=== PATIENT | female | born 1965 | race Caucasian/White ===

== ENCOUNTER → 2019-01-12 12:49 | Outpatient (CLI) | payer BC, SELFPAY ==
--- NOTE | 2019-01-12 | DI.US.S_ITS ---
PROCEDURE: US PELVIC COMPLETE INDICATIONS: POSTMENOPAUSAL BLEEDING TECHNIQUE: Real-time scanning was performed of the pelvic organs, with image documentation. Additional endovaginal scanning was necessary due to incomplete visualization of the adnexal and endometrial structures by transabdominal scanning. COMPARISON: None. FINDINGS: Transabdominal scanning: Limited scanning through the kidneys shows no hydronephrosis. No pathologic free abdominal or pelvic fluid. Endovaginal scanning: Uterus: Uterus is normal in size at 7.9 x 4.7 x 6.2 cm. The endometrium measures 8.6 mm in combined thickness. Ovaries: Left are not visualized. Normal right ovary measuring 2.0 x 1.1 x 1.3 cm. IMPRESSION: Thickened endometrial complex and endometrial carcinoma cannot be excluded. Recommend endometrial biopsy. Dictated by: Oz RANKIN Interpreted: Radu Mayfield MD on 01/12/2019 at 15:24 Approved by: Radu Mayfield M.D. on 01/12/2019 at 16:09
== END ==
PROVIDERS: PCP Family Medicine; Visit Provider Family Medicine
DX: N95.0 Postmenopausal bleeding (principal)
CPT/HCPCS: 76830; 76856

== ENCOUNTER 2019-02-12 16:58 | Emergency (ER) | payer BC, SELFPAY ==
[2019-02-12 17:01] VITALS: BP 124/87; PULSE 184; RESP 20; TEMP 35.5; O2SAT 99; BMI 30.1
--- NOTE | 2019-02-12 17:07 | ED.CHESTPAIN ---
HPI - Chest Pain General Chief Complaint: Chest Pain Stated Complaint: thinks she is having heart attack SOB Time Seen by Provider: 02/12/19 17:07 Source: patient and family () Mode of arrival: ambulatory Limitations: no limitations History of Present Illness HPI narrative: 54-year-old female comes to the emergency department with complaint of pain in pressure between her shoulder blades radiating towards the front. Patient states she feels like her heart is going very fast. She states she feels like she is having a panic attack. She is having some shortness of breath. She is not having any nausea or vomiting. No swelling in her lower extremities no other GI symptoms. She states she has not been drinking fluids regularly. She states she has been out he. She does do not tobacco. She does drink alcohol, she states she has been drinking a lot lately and states sometimes 7 or 8 drinks a night. She has been quite stressed lately with some personal family issues. She occasionally uses CBD but no other illicit. Dr. Jiménez is her primary care. Family history mom had a TIA. Patient states no other medical issues. She has had bunion and surgery and . She did recently drive from [place] back to [place] about a week ago. Related Data Home Medications Medication Instructions Recorded Confirmed aripiprazole 5 mg PO DAILY 02/12/19 Previous Rx's Medication Instructions Recorded metoprolol succinate 25 mg PO DAILY #30 each 02/12/19 Allergies Allergy/AdvReac Type Severity Reaction Status Date / Time No Known Drug Allergies Allergy Verified 02/12/19 17:01 Review of Systems Review of Systems ROS Unobtainable: All systems reviewed & are unremarkable except as noted in HPI and below Constitutional Denies chills and Denies fever(s) Cardiovascular Reports chest pain, Denies diaphoresis, Denies syncope, Reports rapid heart rate, Denies edema, Denies leg edema, Denies lightheadedness, Reports palpitations and Reports dyspnea Respiratory Denies change in phlegm color, Denies chest congestion, Denies cough, Denies pain on inspiration, Reports dyspnea and Denies wheezing Gastrointestinal Gastrointestinal: Denies abdominal pain, Denies change in bowel habits, Denies diarrhea, Denies nausea and Denies vomiting Genitourinary Denies hematuria, Denies dysuria, Denies flank pain, Denies urinary incontinence and Denies urinary urgency Musculoskeletal Reports back pain (tight/pain between shoulder blades.) Integumentary/Breasts Denies rash Neurologic Denies syncope Endocrine Reports palpitations Allergic/Immunologic Denies wheezing [facility] Surgical History (Updated 02/12/19 @ 17:23 by Janice Serrato DO) History of (Chronic) S/P bunionectomy (Chronic) Social History (Updated 02/12/19 @ 17:23 by Janice Serrato DO) Smoking Status: Current every day smoker alcohol intake: current substance use type: marijuana Social History (Updated 02/12/19 @ 17:23 by Janice Serrato DO) Smoking Status: Current every day smoker alcohol intake: current substance use type: marijuana Exam Narrative Exam Narrative: GENERAL: Alert and oriented x three, well-nourished, well-appearing female in moderate chest. HEENT: Head normocephalic, atraumatic, EOMI, pupils reactive, face symmetric, moist mucous membranes NECK: Supple, full range of motion CARDIOVASCULAR: Tachycardic for regular rate and rhythm without murmurs, rubs or gallops. No edema. No JVD. RESPIRATORY: Breath sounds equal bilaterally, no wheezes rales or rhonchi. No tachypnea or accessory muscle use. ABDOMEN: Soft, nontender. Normoactive bowel sounds all 4 quadrants. No guarding or rebound, rigidity, no mass : No CVA tenderness EXTREMITIES: Normal range of motion, 2+ pulses bilateral lower extremities. Neurovascularly intact NEUROLOGICAL: Cranial nerves II through XII grossly intact. Moving all extremities SKIN: Warm, dry, no petechiae, no rashes or lesions. Initial Vital Signs Initial Vital Signs: Vital Signs Temperature 95.9 F L 02/12/19 17:01 Pulse Rate 184 H 02/12/19 17:01 Respiratory Rate 20 02/12/19 17:01 Blood Pressure 124/87 02/12/19 17:01 Pulse Oximetry 99 02/12/19 17:01 Course Orders Ordered: ED Orders 02/12/19 17:10 Complete Blood Count AUTO DIFF Stat Comprehensive Metabolic Panel Stat D Dimer Stat Magnesium Stat Partial Thromboplastin Time Stat Prothrombin Time INR Stat Thyroid Stimulating Hormone Stat Troponin & CK Cardiac Panel Stat 02/12/19 17:14 XR chest 1V Stat Discontinued Medications Adenosine (Adenocard) 6 mg IV NOW ONE Stop: 02/12/19 17:15 Last Admin: 02/12/19 17:20 Dose: 6 mg Sodium Chloride (Normal Saline 0.9%) 1,000 mls @ 1,000 mls/hr IV BOLUS ONE Stop: 02/12/19 18:13 Last Infusion: 02/12/19 17:59 Dose: 0 mls/hr Admin: 02/12/19 17:20 Dose: 1,000 mls/hr Metoprolol Succinate (Toprol Xl) 25 mg PO NOW ONE Stop: 02/12/19 18:28 Vital Signs - 8 hr 02/12/19 17:01 Temperature 95.9 F L Pulse Rate 184 H Respiratory Rate 20 Blood Pressure 124/87 Pulse Oximetry 99 MDM - Chest Pain Lab Data Attestation: I reviewed the patient's lab results. Result diagrams: 02/12/19 17:10 02/12/19 17:10 Lab Results 02/12/19 02/12/19 02/12/19 Range/Units 17:10 17:10 17:10 WBC 7.3 (4.5-11.0) X10^3/uL RBC 4.76 (4.0-5.2) X10^6/uL Hgb 14.7 (12.0-16.0) g/dL Hct 42.9 (36-46) % MCV 90.2 (80-100) fL MCH 30.9 (26-34) PG MCHC 34.3 (30-36) % RDW 13.0 (11.6-14.8) % Plt Count 244 (150-400) X10^3/uL Neut % (Auto) 63.7 (50-75) % Lymph % (Auto) 24.9 L (25-40) % [place] % (Auto) 7.4 (3-14) % Eos % (Auto) 2.7 (2-4) % Baso % (Auto) 1.3 (0-2) % Neut # (Auto) 4700 (9332-0004) /uL Lymph # (Auto) 1800 (7791-6304) /uL [place] # (Auto) 500 (0-900) /uL Eos # (Auto) 200 (0-450) /uL Baso # (Auto) 100 (0-100) /uL PT 11.2 (10.1-12.7) SECONDS INR 1.0 (0.9-1.3) APTT 32 (26.4-36.2) SECONDS D-Dimer 208 (<230) ng/mL Sodium 139 (137-145) mmol/L Potassium 3.6 (3.4-5.1) mmol/L Chloride 108 H (98-107) mmol/L Carbon Dioxide 21 L (22-32) mmol/L BUN 23 H (7-17) mg/dL Creatinine 1.10 H (0.52-1.04) mg/dL Estimated GFR 52.0 L (>60) mL/min BUN/Creatinine Ratio 20.9 (6-22) Glucose 131 H (70-100) mg/dL Calcium 9.5 (8.4-10.2) mg/dL Magnesium 2.0 (1.6-2.3) mg/dL Total Bilirubin 0.8 (0.2-1.3) mg/dL AST 27 (14-36) IU/L ALT 21 (9-52) IU/L Alkaline Phosphatase 102 (38-126) U/L Total Creatine Kinase 78 (30-135) U/L CK-MB (CK-2) TNP CK-MB (CK-2) Rel Index TNP Troponin I < 0.012 (0.01-0.034) ng/mL Total Protein 7.7 (6.3-8.2) g/dL Albumin 4.6 (3.5-5.0) g/dL Globulin 3.1 (1.7-4.1) g/dL Albumin/Globulin Ratio 1.5 (1.0-2.8) TSH (0.47-4.68) uIU/mL 02/12/19 Range/Units 17:10 WBC (4.5-11.0) X10^3/uL RBC (4.0-5.2) X10^6/uL Hgb (12.0-16.0) g/dL Hct (36-46) % MCV (80-100) fL MCH (26-34) PG MCHC (30-36) % RDW (11.6-14.8) % Plt Count (150-400) X10^3/uL Neut % (Auto) (50-75) % Lymph % (Auto) (25-40) % [place] % (Auto) (3-14) % Eos % (Auto) (2-4) % Baso % (Auto) (0-2) % Neut # (Auto) (3555-0076) /uL Lymph # (Auto) (6051-8388) /uL [place] # (Auto) (0-900) /uL Eos # (Auto) (0-450) /uL Baso # (Auto) (0-100) /uL PT (10.1-12.7) SECONDS INR (0.9-1.3) APTT (26.4-36.2) SECONDS D-Dimer (<230) ng/mL Sodium (137-145) mmol/L Potassium (3.4-5.1) mmol/L Chloride (98-107) mmol/L Carbon Dioxide (22-32) mmol/L BUN (7-17) mg/dL Creatinine (0.52-1.04) mg/dL Estimated GFR (>60) mL/min BUN/Creatinine Ratio (6-22) Glucose (70-100) mg/dL Calcium (8.4-10.2) mg/dL Magnesium (1.6-2.3) mg/dL Total Bilirubin (0.2-1.3) mg/dL AST (14-36) IU/L ALT (9-52) IU/L Alkaline Phosphatase (38-126) U/L Total Creatine Kinase (30-135) U/L CK-MB (CK-2) CK-MB (CK-2) Rel Index Troponin I (0.01-0.034) ng/mL Total Protein (6.3-8.2) g/dL Albumin (3.5-5.0) g/dL Globulin (1.7-4.1) g/dL Albumin/Globulin Ratio (1.0-2.8) TSH 2.59 (0.47-4.68) uIU/mL Imaging Data Chest x-ray: Radiologist's impression: [address] [address] XRay Report Signed Patient: Evi Menjivar [facility]#: [id number] : 1965Acct:[id number] Age/Sex: 54 / FDate of Service: 02/12/19 Loc: ED Accession Number: [id number] Procedure: XR chest 1V Ordering Provider: Janice Serrato D.O. PROCEDURE: XR CHEST 1V INDICATIONS: fast heart beat TECHNIQUE: One view of the chest was acquired. COMPARISON: None. FINDINGS: Surgical changes and devices: None. Lungs and pleura: Lungs are clear. No pleural effusions or pneumothorax. Mediastinum: Mediastinal contours appear normal. Heart size is normal. Bones and chest wall: No suspicious bony lesions. Overlying soft tissues appear unremarkable. IMPRESSION: No acute disease Dictated by: Omer Hernandez M.D. on 02/12/2019 at 17:13 Approved by: Omer Hernandez M.D. on 02/12/2019 at 17:15 ECG Data Attestation: I personally reviewed and interpreted this ECG as follows: Interpretation: Patient appears have SVT, Regular rhythm rate 186, QRS of 225, QTC of 330. Patient has ST depression in V3 through V6. EKG 2. Shows a sinus rhythm with a rate 81 OH 164 QRS of 97 QTC of 440. Patient maybe has elevator of ST depression in V4 V5 V6. No elevation is appreciated. MDM Narrative Medical decision making narrative: Patient's EKG appears to be SVT patient received adenosine 6 mg, Valsalva did and had her legs elevated. Patient converted to sinus rhythm. Repeat EKG shows sinus rhythm. With a normal EKG. Patient does not have any prior EKGs available. Patient did state that she has been drinking quite a bit of alcohol which may have caused or exacerbated the symptoms. She is asymptomatic after the event. Nazario spoke with Dr. Cantu from Cardiology he recommends 25 mg extended release metoprolol/succinate once daily. Patient is to call follow-up with Cardiology. He also recommends no more than 1 alcoholic drink daily. No pre-excitation appreciated on repeat EKG. Discussed with patient and family. They are comfortable with the plan. She will try decrease her alcohol intake. Discharge Plan Departure Patient Disposition: Home Clinical Impression: SVT (supraventricular tachycardia) Instructions: Paroxysmal Supraventricular Tachycardia Activity Restrictions/Additional Instructions: Follow-up with Cardiology next week. Call for an appointment on Friday. I would recommend avoiding alcohol as this can cause or exacerbate arrhythmias of the heart. You may have 1 alcoholic drink daily maximum. Take metoprolol 25 mg once daily until seen by Cardiology. Make sure your drinking plenty of water. Return to the emergency department for fevers greater than 100.4 F, passing out, new shortness of breath, no chest pain or pressure, continued fast heartbeat, persistent vomiting, back pain, swelling in your extremities or other new or concerning symptoms. Prescriptions: New metoprolol succinate 25 mg cap,sprinkle,ER 24hr dose pack 25 mg PO DAILY Qty: 30 RF: 0 No Action aripiprazole 5 mg tablet 5 mg PO DAILY RF: 0 Referrals: Ge Jiménez MD [Primary Care Provider] - Shekhar Cantu MD [Physician] -
--- NOTE | 2019-02-12 17:14 | DI.RAD.S_ITS ---
PROCEDURE: XR CHEST 1V INDICATIONS: fast heart beat TECHNIQUE: One view of the chest was acquired. COMPARISON: None. FINDINGS: Surgical changes and devices: None. Lungs and pleura: Lungs are clear. No pleural effusions or pneumothorax. Mediastinum: Mediastinal contours appear normal. Heart size is normal. Bones and chest wall: No suspicious bony lesions. Overlying soft tissues appear unremarkable. IMPRESSION: No acute disease Dictated by: Omer Hernandez M.D. on 02/12/2019 at 17:13 Approved by: Omer Hernandez M.D. on 02/12/2019 at 17:15
[2019-02-12 17:20] LABS: Add Manual Diff / Slide Review NO; Basophils Absolute Auto 100 /uL (0-100); Basophils Percent Auto 1.3 % (0-2); Eosinophils Absolute Auto 200 /uL (0-450); Eosinophils Percent Auto 2.7 % (2-4); Hematocrit 42.9 % (36-46); Hemoglobin 14.7 g/dL (12.0-16.0); Lymphocytes Absolute Auto 1800 /uL (1100-4500); Lymphocytes Percent Auto 24.9 % (25-40); Mean Corpuscular HGB Conc 34.3 % (30-36); Mean Corpuscular Hemoglobin 30.9 PG (26-34); Mean Corpuscular Volume 90.2 fL (80-100); Monocytes Absolute Auto 500 /uL (0-900); Monocytes Percent Auto 7.4 % (3-14); Neutrophils Absolute Auto 4700 /uL (1500-7000); Neutrophils Percent Auto 63.7 % (50-75); Platelet Count 244 X10^3/uL (150-400); Red Blood Cell Count 4.76 X10^6/uL (4.0-5.2); White Blood Cell Count 7.3 X10^3/uL (4.5-11.0)
[2019-02-12] MEDS: SODIUM CHLORIDE 0.9% 1,000 ML 1000 ML IV (17:20)
[2019-02-12] MEDS: ADENOSINE 6 MG/2 ML VIAL IV (17:20)
--- NOTE | 2019-02-12 17:21 | ED_ITS ---
HPI - Chest Pain General Chief Complaint: Chest Pain Stated Complaint: thinks she is having heart attack SOB Time Seen by Provider: 02/12/19 17:07 Source: patient and family () Mode of arrival: ambulatory Limitations: no limitations History of Present Illness HPI narrative: 54-year-old female comes to the emergency department with complaint of pain in pressure between her shoulder blades radiating towards the front. Patient states she feels like her heart is going very fast. She states she feels like she is having a panic attack. She is having some shortness of breath. She is not having any nausea or vomiting. No swelling in her lower extremities no other GI symptoms. She states she has not been drinking fluids regularly. She states she has been out he. She does do not tobacco. She does drink alcohol, she states she has been drinking a lot lately and states sometimes 7 or 8 drinks a night. She has been quite stressed lately with some personal family issues. She occasionally uses CBD but no other illicit. Dr. Jiménez is her primary care. Family history mom had a TIA. Patient states no other medical issues. She has had bunion and surgery and . She did recently drive from [place] back to [place] about a week ago. Related Data Home Medications Medication Instructions Recorded Confirmed aripiprazole 5 mg PO DAILY 02/12/19 Previous Rx's Medication Instructions Recorded metoprolol succinate 25 mg PO DAILY #30 each 02/12/19 Allergies Allergy/AdvReac Type Severity Reaction Status Date / Time No Known Drug Allergies Allergy Verified 02/12/19 17:01 Review of Systems Review of Systems ROS Unobtainable: All systems reviewed & are unremarkable except as noted in HPI and below Constitutional Denies chills and Denies fever(s) Cardiovascular Reports chest pain, Denies diaphoresis, Denies syncope, Reports rapid heart rate, Denies edema, Denies leg edema, Denies lightheadedness, Reports palpitations and Reports dyspnea Respiratory Denies change in phlegm color, Denies chest congestion, Denies cough, Denies pain on inspiration, Reports dyspnea and Denies wheezing Gastrointestinal Gastrointestinal: Denies abdominal pain, Denies change in bowel habits, Denies diarrhea, Denies nausea and Denies vomiting Genitourinary Denies hematuria, Denies dysuria, Denies flank pain, Denies urinary incontinence and Denies urinary urgency Musculoskeletal Reports back pain (tight/pain between shoulder blades.) Integumentary/Breasts Denies rash Neurologic Denies syncope Endocrine Reports palpitations Allergic/Immunologic Denies wheezing [facility] Surgical History (Updated 02/12/19 @ 17:23 by Janice Serrato DO) History of (Chronic) S/P bunionectomy (Chronic) Social History (Updated 02/12/19 @ 17:23 by Janice Serrato DO) Smoking Status: Current every day smoker alcohol intake: current substance use type: marijuana Social History (Updated 02/12/19 @ 17:23 by Janice Serrato DO) Smoking Status: Current every day smoker alcohol intake: current substance use type: marijuana Exam Narrative Exam Narrative: GENERAL: Alert and oriented x three, well-nourished, well- appearing female in moderate chest. HEENT: Head normocephalic, atraumatic, EOMI, pupils reactive, face symmetric, moist mucous membranes NECK: Supple, full range of motion CARDIOVASCULAR: Tachycardic for regular rate and rhythm without murmurs, rubs or gallops. No edema. No JVD. RESPIRATORY: Breath sounds equal bilaterally, no wheezes rales or rhonchi. No tachypnea or accessory muscle use. ABDOMEN: Soft, nontender. Normoactive bowel sounds all 4 quadrants. No guarding or rebound, rigidity, no mass : No CVA tenderness EXTREMITIES: Normal range of motion, 2+ pulses bilateral lower extremities. Neurovascularly intact NEUROLOGICAL: Cranial nerves II through XII grossly intact. Moving all extremities SKIN: Warm, dry, no petechiae, no rashes or lesions. Initial Vital Signs Initial Vital Signs: Vital Signs Temperature 95.9 F L 02/12/19 17:01 Pulse Rate 184 H 02/12/19 17:01 Respiratory Rate 20 02/12/19 17:01 Blood Pressure 124/87 02/12/19 17:01 Pulse Oximetry 99 02/12/19 17:01 Course Orders Ordered: ED Orders 02/12/19 17:10 Complete Blood Count AUTO DIFF Stat Comprehensive Metabolic Panel Stat D Dimer Stat Magnesium Stat Partial Thromboplastin Time Stat Prothrombin Time INR Stat Thyroid Stimulating Hormone Stat Troponin & CK Cardiac Panel Stat 02/12/19 17:14 XR chest 1V Stat Discontinued Medications Adenosine (Adenocard) 6 mg IV NOW ONE Stop: 02/12/19 17:15 Last Admin: 02/12/19 17:20 Dose: 6 mg Sodium Chloride (Normal Saline 0.9%) 1,000 mls @ 1,000 mls/hr IV BOLUS ONE Stop: 02/12/19 18:13 Last Infusion: 02/12/19 17:59 Dose: 0 mls/hr Admin: 02/12/19 17:20 Dose: 1,000 mls/hr Metoprolol Succinate (Toprol Xl) 25 mg PO NOW ONE Stop: 02/12/19 18:28 Vital Signs - 8 hr 02/12/19 17:01 Temperature 95.9 F L Pulse Rate 184 H Respiratory Rate 20 Blood Pressure 124/87 Pulse Oximetry 99 MDM - Chest Pain Lab Data Attestation: I reviewed the patient's lab results. Result diagrams: 02/12/19 17:10 02/12/19 17:10 Lab Results 02/12/19 02/12/19 02/12/19 Range/Units 17:10 17:10 17:10 WBC 7.3 (4.5-11.0) X10^3/uL RBC 4.76 (4.0-5.2) X10^6/uL Hgb 14.7 (12.0-16.0) g/dL Hct 42.9 (36-46) % MCV 90.2 (80-100) fL MCH 30.9 (26-34) PG MCHC 34.3 (30-36) % RDW 13.0 (11.6-14.8) % Plt Count 244 (150-400) X10^3/uL Neut % (Auto) 63.7 (50-75) % Lymph % (Auto) 24.9 L (25-40) % [place] % (Auto) 7.4 (3-14) % Eos % (Auto) 2.7 (2-4) % Baso % (Auto) 1.3 (0-2) % Neut # (Auto) 4700 (1010-4705) /uL Lymph # (Auto) 1800 (1687-9884) /uL [place] # (Auto) 500 (0-900) /uL Eos # (Auto) 200 (0-450) /uL Baso # (Auto) 100 (0-100) /uL PT 11.2 (10.1-12.7) SECONDS INR 1.0 (0.9-1.3) APTT 32 (26.4-36.2) SECONDS D-Dimer 208 (<230) ng/mL Sodium 139 (137-145) mmol/L Potassium 3.6 (3.4-5.1) mmol/L Chloride 108 H (98-107) mmol/L Carbon Dioxide 21 L (22-32) mmol/L BUN 23 H (7-17) mg/dL Creatinine 1.10 H (0.52-1.04) mg/dL Estimated GFR 52.0 L (>60) mL/min BUN/Creatinine Ratio 20.9 (6-22) Glucose 131 H (70-100) mg/dL Calcium 9.5 (8.4-10.2) mg/dL Magnesium 2.0 (1.6-2.3) mg/dL Total Bilirubin 0.8 (0.2-1.3) mg/dL AST 27 (14-36) IU/L ALT 21 (9-52) IU/L Alkaline Phosphatase 102 (38-126) U/L Total Creatine Kinase 78 (30-135) U/L CK-MB (CK-2) TNP CK-MB (CK-2) Rel Index TNP Troponin I < 0.012 (0.01-0.034) ng/mL Total Protein 7.7 (6.3-8.2) g/dL Albumin 4.6 (3.5-5.0) g/dL Globulin 3.1 (1.7-4.1) g/dL Albumin/Globulin Ratio 1.5 (1.0-2.8) TSH (0.47-4.68) uIU/mL 02/12/19 Range/Units 17:10 WBC (4.5-11.0) X10^3/uL RBC (4.0-5.2) X10^6/uL Hgb (12.0-16.0) g/dL Hct (36-46) % MCV (80-100) fL MCH (26-34) PG MCHC (30-36) % RDW (11.6-14.8) % Plt Count (150-400) X10^3/uL Neut % (Auto) (50-75) % Lymph % (Auto) (25-40) % [place] % (Auto) (3-14) % Eos % (Auto) (2-4) % Baso % (Auto) (0-2) % Neut # (Auto) (8111-1873) /uL Lymph # (Auto) (3391-8482) /uL [place] # (Auto) (0-900) /uL Eos # (Auto) (0-450) /uL Baso # (Auto) (0-100) /uL PT (10.1-12.7) SECONDS INR (0.9-1.3) APTT (26.4-36.2) SECONDS D-Dimer (<230) ng/mL Sodium (137-145) mmol/L Potassium (3.4-5.1) mmol/L Chloride (98-107) mmol/L Carbon Dioxide (22-32) mmol/L BUN (7-17) mg/dL Creatinine (0.52-1.04) mg/dL Estimated GFR (>60) mL/min BUN/Creatinine Ratio (6-22) Glucose (70-100) mg/dL Calcium (8.4-10.2) mg/dL Magnesium (1.6-2.3) mg/dL Total Bilirubin (0.2-1.3) mg/dL AST (14-36) IU/L ALT (9-52) IU/L Alkaline Phosphatase (38-126) U/L Total Creatine Kinase (30-135) U/L CK-MB (CK-2) CK-MB (CK-2) Rel Index Troponin I (0.01-0.034) ng/mL Total Protein (6.3-8.2) g/dL Albumin (3.5-5.0) g/dL Globulin (1.7-4.1) g/dL Albumin/Globulin Ratio (1.0-2.8) TSH 2.59 (0.47-4.68) uIU/mL Imaging Data Chest x-ray: Radiologist's impression: [address] [address] XRay Report Signed Patient: Evi Menjivar [facility]#: [id number] : 1965Acct:[id number] Age/Sex: 54 / FDate of Service: 02/12/19 Loc: ED Accession Number: [id number] Procedure: XR chest 1V Ordering Provider: Janice Serrato D.O. PROCEDURE: XR CHEST 1V INDICATIONS: fast heart beat TECHNIQUE: One view of the chest was acquired. COMPARISON: None. FINDINGS: Surgical changes and devices: None. Lungs and pleura: Lungs are clear. No pleural effusions or pneumothorax. Mediastinum: Mediastinal contours appear normal. Heart size is normal. Bones and chest wall: No suspicious bony lesions. Overlying soft tissues appear unremarkable. IMPRESSION: No acute disease Dictated by: Omer Hernandez M.D. on 02/12/2019 at 17:13 Approved by: Omer Hernandez M.D. on 02/12/2019 at 17:15 ECG Data Attestation: I personally reviewed and interpreted this ECG as follows: Interpretation: Patient appears have SVT, Regular rhythm rate 186, QRS of 225, QTC of 330. Patient has ST depression in V3 through V6. EKG 2. Shows a sinus rhythm with a rate 81 [place] 164 QRS of 97 QTC of 440. Patient maybe has elevator of ST depression in V4 V5 V6. No elevation is appreciated. MDM Narrative Medical decision making narrative: Patient's EKG appears to be SVT patient received adenosine 6 mg, Valsalva did and had her legs elevated. Patient converted to sinus rhythm. Repeat EKG shows sinus rhythm. With a normal EKG. Patient does not have any prior EKGs available. Patient did state that she has been drinking quite a bit of alcohol which may have caused or exacerbated the symptoms. She is asymptomatic after the event. Nazario spoke with Dr. Cantu from Cardiology he recommends 25 mg extended release metoprolol/succinate once daily. Patient is to call follow-up with Cardiology. He also recommends no more than 1 alcoholic drink daily. No pre- excitation appreciated on repeat EKG. Discussed with patient and family. They are comfortable with the plan. She will try decrease her alcohol intake. Discharge Plan Departure Patient Disposition: Home Clinical Impression: SVT (supraventricular tachycardia) Instructions: Paroxysmal Supraventricular Tachycardia Activity Restrictions/Additional Instructions: Follow-up with Cardiology next week. Call for an appointment on Friday. I would recommend avoiding alcohol as this can cause or exacerbate arrhythmias of the heart. You may have 1 alcoholic drink daily maximum. Take metoprolol 25 mg once daily until seen by Cardiology. Make sure your drinking plenty of water. Return to the emergency department for fevers greater than 100.4 F, passing out, new shortness of breath, no chest pain or pressure, continued fast heartbeat, persistent vomiting, back pain, swelling in your extremities or other new or concerning symptoms. Prescriptions: New metoprolol succinate 25 mg cap,sprinkle,ER 24hr dose pack 25 mg PO DAILY Qty: 30 RF: 0 No Action aripiprazole 5 mg tablet 5 mg PO DAILY RF: 0 Referrals: Ge Jiménez MD [Primary Care Provider] - Shekhar Cantu MD [Physician] -
[2019-02-12 17:25] LABS: Prothrombin Time 11.2 SECONDS (10.1-12.7)
--- NOTE | 2019-02-12 17:25 | PC.NURSE ---
Given adenosine and HR now NSR
[2019-02-12 17:28] LABS: D Dimer 208 ng/mL (<230); PTT Partial Thromboplastin Tim 32 SECONDS (26.4-36.2)
[2019-02-12 17:33] LABS: Alanine Aminotransferase 21 IU/L (9-52); Albumin 4.6 g/dL (3.5-5.0); Albumin Globulin Ratio 1.5 (1.0-2.8); Alkaline Phosphatase 102 U/L (38-126); Aspartate Aminotransferase 27 IU/L (14-36); BUN Creatinine Ratio 20.9 (6-22); Bilirubin Total 0.8 mg/dL (0.2-1.3); Blood Urea Nitrogen 23 mg/dL (7-17); Calcium 9.5 mg/dL (8.4-10.2); Carbon Dioxide 21 mmol/L (22-32); Chloride 108 mmol/L (98-107); Creatine Kinase 78 U/L (30-135); Globulin 3.1 g/dL (1.7-4.1); Glucose 131 mg/dL (70-100); HEMOLYSIS < 15 (0-50); Potassium 3.6 mmol/L (3.4-5.1); Sodium 139 mmol/L (137-145); Total Protein 7.7 g/dL (6.3-8.2)
[2019-02-12 17:44] LABS: Troponin I < 0.012 ng/mL (0.01-0.034)
[2019-02-12 18:26] LABS: Thyroid Stimulating Hormone 2.59 uIU/mL (0.47-4.68)
[2019-02-12 18:40] VITALS: BP 128/80; PULSE 82
[2019-02-12] MEDS: METOPROLOL ER 25 MG TABLET PO (18:40)
[2019-02-12 18:51] VITALS: BP 128/90; PULSE 82; RESP 16; O2SAT 98
== END 2019-02-12 18:53 | disposition home or self-care (01) ==
PROVIDERS: Emergency Provider Emergency Medicine; PCP Family Medicine
DX: I47.1 Supraventricular tachycardia (principal); R06.02 Shortness of breath
CPT/HCPCS: 36591; 71045; 80053; 82550; 83735; 84443; 84484; 85025; 85379; 85610; 85730; 93005; 93041; 96361; 96374; 99283; 99285; J0153

== ENCOUNTER 2019-02-22 17:46 | Emergency (ER) | payer BC, SELFPAY ==
[2019-02-22 17:54] VITALS: BP 147/95; PULSE 90; RESP 14; TEMP 36.3; O2SAT 97; BMI 29.2
--- NOTE | 2019-02-22 17:56 | DI.RAD.S_ITS ---
PROCEDURE: XR CHEST 1V INDICATIONS: chest pain TECHNIQUE: One view of the chest was acquired. COMPARISON: [facility], CR, XR CHEST 1V, 02/12/2019, 17:21. FINDINGS: Surgical changes and devices: None. Lungs and pleura: Lungs are clear. No pleural effusions or pneumothorax. Mediastinum: Mediastinal contours appear normal. Heart size is normal. Bones and chest wall: No suspicious bony lesions. Overlying soft tissues appear unremarkable. IMPRESSION: 1. No acute cardiopulmonary disease. Dictated by: Everardo Mireles M.D. on 02/22/2019 at 18:25 Approved by: Everardo Mireles M.D. on 02/22/2019 at 18:25
[2019-02-22 18:35] LABS: Add Manual Diff / Slide Review NO; Basophils Absolute Auto 100 /uL (0-100); Basophils Percent Auto 1.3 % (0-2); Eosinophils Absolute Auto 200 /uL (0-450); Eosinophils Percent Auto 3.6 % (2-4); Hematocrit 42.4 % (36-46); Hemoglobin 14.6 g/dL (12.0-16.0); Lymphocytes Absolute Auto 900 /uL (1100-4500); Mean Corpuscular HGB Conc 34.6 % (30-36); Mean Corpuscular Hemoglobin 30.8 PG (26-34); Mean Corpuscular Volume 89.1 fL (80-100); Monocytes Absolute Auto 300 /uL (0-900); Monocytes Percent Auto 6.4 % (3-14); Neutrophils Absolute Auto 3200 /uL (1500-7000); Neutrophils Percent Auto 68.7 % (50-75); Platelet Count 203 X10^3/uL (150-400); Red Blood Cell Count 4.76 X10^6/uL (4.0-5.2); Red Cell Distribution Width 12.7 % (11.6-14.8); White Blood Cell Count 4.7 X10^3/uL (4.5-11.0)
[2019-02-22 18:44] LABS: Prothrombin Time 11.7 SECONDS (10.1-12.7)
[2019-02-22 18:47] LABS: PTT Partial Thromboplastin Tim 31 SECONDS (26.4-36.2)
[2019-02-22 18:48] LABS: Alanine Aminotransferase 17 IU/L (9-52); Albumin 4.4 g/dL (3.5-5.0); Albumin Globulin Ratio 1.4 (1.0-2.8); Alkaline Phosphatase 92 U/L (38-126); Aspartate Aminotransferase 23 IU/L (14-36); BUN Creatinine Ratio 25.7 (6-22); Bilirubin Total 0.4 mg/dL (0.2-1.3); Blood Urea Nitrogen 18 mg/dL (7-17); Calcium 9.5 mg/dL (8.4-10.2); Carbon Dioxide 24 mmol/L (22-32); Chloride 108 mmol/L (98-107); Creatine Kinase 51 U/L (30-135); Estimated Glomerular Filt Rate > 60.0 mL/min (>60); Globulin 3.2 g/dL (1.7-4.1); Glucose 80 mg/dL (70-100); HEMOLYSIS < 15 (0-50); Lipase 150 U/L (23-300); Potassium 3.5 mmol/L (3.4-5.1); Sodium 141 mmol/L (137-145); Total Protein 7.6 g/dL (6.3-8.2)
[2019-02-22 18:58] VITALS: BP 145/98; PULSE 78; RESP 18; O2SAT 98
[2019-02-22 18:58] LABS: Troponin I < 0.012 ng/mL (0.01-0.034)
--- NOTE | 2019-02-22 19:21 | ED_ITS ---
HPI - Arrhythmia/Palpitations <Lisa Dang PA-C - Last Filed: 02/22/19 21:26> General Chief Complaint: Arrhythmia/Palpitations Stated Complaint: heart palps again Time Seen by Provider: 02/22/19 19:19 Source: patient Mode of arrival: ambulatory Limitations: no limitations History of Present Illness HPI narrative: This 54-year-old female comes to ED secondary to recurrent heart palpitations. She states that she noted rapid, pounding, not irregular heart rate up to 150-160s range. She states this started to improve as soon as she laid down, 10/16/2042. She states that she did foot her face in some cold water and she thinks continued to come down but after 20 minutes still having some palpitations. She states that as soon as she got in the truck to head this way, she started to feel better and she felt a ?thunk just before her initial EKG and then felt completely back to normal. She states that this was not as severe as last time she was here. She did not have chest pain, dyspnea, back pain or other symptoms with this aside from feeling a little bit dizzy initially when her heart rate was fast. She states that she feels well now. She admits that she has been under increased stress. She had cut out alcohol but had a few drinks last night, and thinks she may not have had as much water as usual today. She states she has not had any recent illness, fever, cough. No abdominal pain or urinary symptoms. She is feeling well now. States she has been taking meto prolol. 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 Related Data Home Medications Medication Instructions Recorded Confirmed aripiprazole 5 mg PO DAILY 02/12/19 Previous Rx's Medication Instructions Recorded metoprolol succinate 25 mg PO DAILY #30 each 02/12/19 Allergies Allergy/AdvReac Type Severity Reaction Status Date / Time No Known Drug Allergies Allergy Verified 02/22/19 17:54 Review of Systems <Lisa Dang PA-C - Last Filed: 02/22/19 21:26> Review of Systems ROS Unobtainable: All systems reviewed & are unremarkable except as noted in HPI and below PFSH <Lisa Dang PA-C - Last Filed: 02/22/19 21:26> Medical History SVT (supraventricular tachycardia) (Chronic) ETOH abuse (Chronic) Surgical History History of (Chronic) S/P bunionectomy (Chronic) Social History Smoking Status: Current every day smoker alcohol intake: current substance use type: marijuana Social History Smoking Status: Current every day smoker alcohol intake: current substance use type: marijuana Exam <Lisa Dang PA-C - Last Filed: 02/22/19 21:26> Narrative Exam Narrative: GENERAL APPEARANCE: Patient sitting comfortably, in no distress. HEENT: PERRL, EOMI, normal oropharynx NECK/THYROID: Neck supple, no JVD, no masses. LUNGS: Clear to auscultation bilaterally. HEART: Regular rate and rhythm without murmur, normal S1, S2, no S3 or S4. ABDOMEN: Soft, NT, ND, + BS x 4 quadrants EXTREMITIES: No cyanosis or edema. No calf tenderness NEUROLOGIC: Alert and oriented, normal speech, and coordination. Initial Vital Signs Initial Vital Signs: Vital Signs Temperature 97.3 F L 02/22/19 17:54 Pulse Rate 90 02/22/19 17:54 Respiratory Rate 14 02/22/19 17:54 Blood Pressure 147/95 H 02/22/19 17:54 Pulse Oximetry 97 02/22/19 17:54 <Amira Martins DO - Last Filed: 02/23/19 04:17> Initial Vital Signs Initial Vital Signs: Vital Signs Temperature 97.3 F L 02/22/19 17:54 Pulse Rate 90 02/22/19 17:54 Respiratory Rate 14 02/22/19 17:54 Blood Pressure 147/95 H 02/22/19 17:54 Pulse Oximetry 97 02/22/19 17:54 Course <Lisa Dang PA-C - Last Filed: 02/22/19 21:26> Additional Information: Patient is feeling normal currently, EKG is normal with rate 87, has been in the 70s to 80s on the monitor. Discussed being consistent with food and water, and keeping alcohol consistently to a minimum. Continue metoprolol. She will follow up with PCP and will schedule with Cardiology. She agrees to return if any acutely worsening symptoms again. Orders Ordered: Discontinued Medications Ondansetron HCl (Zofran Odt) 4 mg SL NOW ONE Stop: 02/22/19 20:29 Vital Signs - 8 hr 02/22/19 17:54 02/22/19 18:58 02/22/19 20:02 Temperature 97.3 F L Pulse Rate 90 78 78 Respiratory Rate 14 18 18 Blood Pressure 147/95 H Blood Pressure [Right Arm] 145/98 H 141/107 H Pulse Oximetry 97 98 98 <Amira Martins DO - Last Filed: 02/23/19 04:17> Orders Ordered: Discontinued Medications Ondansetron HCl (Zofran Odt) 4 mg SL NOW ONE Stop: 02/22/19 20:29 Vital Signs - 8 hr 02/22/19 17:54 02/22/19 18:58 02/22/19 20:02 Temperature 97.3 F L Pulse Rate 90 78 78 Respiratory Rate 14 18 18 Blood Pressure 147/95 H Blood Pressure [Right Arm] 145/98 H 141/107 H Pulse Oximetry 97 98 98 MDM - Arrhythmia/Palpitations <Lisa Dang PA-C - Last Filed: 02/22/19 21:26> Lab Data Result diagrams: 02/22/19 18:25 02/22/19 18:25 Lab Results 02/22/19 02/22/19 02/22/19 Range/Units 18:25 18:25 18:25 WBC 4.7 (4.5-11.0) X10^3/uL RBC 4.76 (4.0-5.2) X10^6/uL Hgb 14.6 (12.0-16.0) g/dL Hct 42.4 (36-46) % MCV 89.1 (80-100) fL MCH 30.8 (26-34) PG MCHC 34.6 (30-36) % RDW 12.7 (11.6-14.8) % Plt Count 203 (150-400) X10^3/uL Neut % (Auto) 68.7 (50-75) % Lymph % (Auto) 20.0 L (25-40) % Lincoln % (Auto) 6.4 (3-14) % Eos % (Auto) 3.6 (2-4) % Baso % (Auto) 1.3 (0-2) % Neut # (Auto) 3200 (2210-5050) /uL Lymph # (Auto) 900 L (7423-1503) /uL Lincoln # (Auto) 300 (0-900) /uL Eos # (Auto) 200 (0-450) /uL Baso # (Auto) 100 (0-100) /uL PT 11.7 (10.1-12.7) SECONDS INR 1.0 (0.9-1.3) APTT 31 (26.4-36.2) SECONDS Sodium 141 (137-145) mmol/L Potassium 3.5 (3.4-5.1) mmol/L Chloride 108 H (98-107) mmol/L Carbon Dioxide 24 (22-32) mmol/L BUN 18 H (7-17) mg/dL Creatinine 0.70 (0.52-1.04) mg/dL Estimated GFR > 60.0 (>60) mL/min BUN/Creatinine Ratio 25.7 H (6-22) Glucose 80 (70-100) mg/dL Calcium 9.5 (8.4-10.2) mg/dL Total Bilirubin 0.4 (0.2-1.3) mg/dL AST 23 (14-36) IU/L ALT 17 (9-52) IU/L Alkaline Phosphatase 92 (38-126) U/L Total Creatine Kinase 51 (30-135) U/L CK-MB (CK-2) TNP CK-MB (CK-2) Rel Index TNP Troponin I < 0.012 (0.01-0.034) ng/mL Total Protein 7.6 (6.3-8.2) g/dL Albumin 4.4 (3.5-5.0) g/dL Globulin 3.2 (1.7-4.1) g/dL Albumin/Globulin Ratio 1.4 (1.0-2.8) Lipase 150 (23-300) U/L <Amira Martins, DO - Last Filed: 02/23/19 04:17> Lab Data Lab Results 02/22/19 02/22/19 02/22/19 Range/Units 18:25 18:25 18:25 WBC 4.7 (4.5-11.0) X10^3/uL RBC 4.76 (4.0-5.2) X10^6/uL Hgb 14.6 (12.0-16.0) g/dL Hct 42.4 (36-46) % MCV 89.1 (80-100) fL MCH 30.8 (26-34) PG MCHC 34.6 (30-36) % RDW 12.7 (11.6-14.8) % Plt Count 203 (150-400) X10^3/uL Neut % (Auto) 68.7 (50-75) % Lymph % (Auto) 20.0 L (25-40) % Lincoln % (Auto) 6.4 (3-14) % Eos % (Auto) 3.6 (2-4) % Baso % (Auto) 1.3 (0-2) % Neut # (Auto) 3200 (5826-9398) /uL Lymph # (Auto) 900 L (6056-3488) /uL Lincoln # (Auto) 300 (0-900) /uL Eos # (Auto) 200 (0-450) /uL Baso # (Auto) 100 (0-100) /uL PT 11.7 (10.1-12.7) SECONDS INR 1.0 (0.9-1.3) APTT 31 (26.4-36.2) SECONDS Sodium 141 (137-145) mmol/L Potassium 3.5 (3.4-5.1) mmol/L Chloride 108 H (98-107) mmol/L Carbon Dioxide 24 (22-32) mmol/L BUN 18 H (7-17) mg/dL Creatinine 0.70 (0.52-1.04) mg/dL Estimated GFR > 60.0 (>60) mL/min BUN/Creatinine Ratio 25.7 H (6-22) Glucose 80 (70-100) mg/dL Calcium 9.5 (8.4-10.2) mg/dL Total Bilirubin 0.4 (0.2-1.3) mg/dL AST 23 (14-36) IU/L ALT 17 (9-52) IU/L Alkaline Phosphatase 92 (38-126) U/L Total Creatine Kinase 51 (30-135) U/L CK-MB (CK-2) TNP CK-MB (CK-2) Rel Index TNP Troponin I < 0.012 (0.01-0.034) ng/mL Total Protein 7.6 (6.3-8.2) g/dL Albumin 4.4 (3.5-5.0) g/dL Globulin 3.2 (1.7-4.1) g/dL Albumin/Globulin Ratio 1.4 (1.0-2.8) Lipase 150 (23-300) U/L ECG Data Attestation: I personally reviewed and interpreted this ECG as follows: Prior ECG tracings: available for review Interpretation: Normal sinus rhythm rate 87 P are interval [address] changes no delta waves no T-wave inversions. Similar to previous EKG Discharge Plan Departure Patient Disposition: Home Clinical Impression: SVT (supraventricular tachycardia) Discharge Date/Time: 02/22/19 20:15 Interventions: ED Discharge Assessment Last Done: 02/22/19 20:28 Instructions: Smoking Cessation Drugs: Bupropion, Smoking Cessation Drugs: Nicotine Replacement Products, Serious Ways to Stop Smoking, Tips to Help You Stop Smoking, Paroxysmal Supraventricular Tachycardia, Reasons to Quit Smoking, How to Quit Smoking, Positive Mental Health Changes Found After Smoking Cessa tion Activity Restrictions/Additional Instructions: I agree with you that you likely had an episode of SVT (supraventricular tachycardia) again, like you had before, just less severe. Your testing does not show any acute abnormality today, and her heart rates have been back to normal here in the department. Please continue your metoprolol, and follow up with your PCP this week to assess your progress and determine whether to increase the metoprolol further.. Please keep alcohol to a minimum (1 drink daily maximum) and be consistent with your food and fluid intake. Try to minim ize your stressors. Please call cardiology tomorrow and let them know you were seen in the emergency room again and need to set up a follow-up visit. As we talked about, you should return here in the interim if you have any acutely worsening symptoms again. Prescriptions: No Action aripiprazole 5 mg tablet 5 mg PO DAILY RF: 0 metoprolol succinate 25 mg cap,sprinkle,ER 24hr dose pack 25 mg PO DAILY Qty: 30 RF: 0 Referrals: Ge Jiménez MD [Primary Care Provider] - Shekhar Cantu MD [Physician] - <Amira Martins DO - Last Filed: 02/23/19 04:17> [facility]ign ED Attending Augustature Attestation: I was immediately available in the department for consultation. Documentation has been reviewed. I agree with assessment and plan.
[2019-02-22 20:02] VITALS: BP 141/107; PULSE 78; RESP 18; O2SAT 98
== END 2019-02-22 20:15 | disposition home or self-care (01) ==
PROVIDERS: Emergency Medicine; Emergency Provider Internal Medicine; PCP Family Medicine
DX: I47.1 Supraventricular tachycardia (principal)
CPT/HCPCS: 36591; 71045; 80053; 82550; 83690; 84484; 85025; 85610; 85730; 93005; 99283; 99285

== ENCOUNTER → 2019-08-31 12:46 | Outpatient (CLI) | payer BC, SELFPAY ==
--- NOTE | 2019-08-31 | DI.RAD.S_ITS ---
PROCEDURE: XR CHEST 2V INDICATIONS: Unspecified acute and subacute iridocyclitis TECHNIQUE: 2 views of the chest were acquired. COMPARISON: [facility], CR, XR CHEST 1V, 02/22/2019, 18:07. [facility], CR, XR CHEST 1V, 02/12/2019, 17:21. FINDINGS: Surgical changes and devices: None. Lungs and pleura: Left basilar infiltrates or atelectasis. No pleural effusions or pneumothorax. Mediastinum: Mediastinal contours are normal. Heart size is normal. Bones and chest wall: No suspicious bony abnormalities. Soft tissues appear unremarkable. IMPRESSION: Left basilar infiltrate or atelectasis. Dictated by: Rochelle Olsen M.D. on 08/31/2019 at 13:35 Approved by: Rochelle Olsen M.D. on 08/31/2019 at 13:38
[2019-09-02 15:14] LABS: Angiotensin Converting Enzyme 43 U/L (9-67)
[2019-09-02 16:24] LABS: HLA B27 NEGATIVE (Negative)
[2019-09-02 18:19] LABS: RPR Screen Nonreactive (Nonreactive)
[2019-09-03 09:59] LABS: ANCA Screen NEGATIVE (NEGATIVE)
[2019-09-03 11:24] LABS: Lysozyme (Muramidase) 5.2 mcg/mL (5.0-11.0)
[2019-09-03 14:10] LABS: Mitogen-NIL > 10.00 IU/mL; NIL 0.03 IU/mL; QuantiFERON TB NEGATIVE (Negative); TB1-NIL < 0.01 IU/mL; TB2-NIL < 0.01 IU/mL
== END ==
PROVIDERS: PCP Student in an Organized Health Care Education/Training Program; Visit Provider Ophthalmology
DX: H20.00 Unspecified acute and subacute iridocyclitis (principal)
CPT/HCPCS: 36415; 71046; 81374; 82164; 85549; 86021; 86480; 86592; 86780

== ENCOUNTER → 2020-05-25 13:16 | Outpatient (CLI) | payer BC, SELFPAY ==
[2020-05-26 13:05] LABS: COVID19 Sendout Not Detected (Not Detected)
== END ==
PROVIDERS: PCP Student in an Organized Health Care Education/Training Program; Visit Provider Physician Assistant
DX: R05 Cough (principal); R09.81 Nasal congestion; R51 Headache
CPT/HCPCS: 87635

== ENCOUNTER → 2020-07-14 12:18 | Outpatient (CLI) | payer BC, SELFPAY ==
--- NOTE | 2020-07-14 | DI.MG.S_ITS ---
BILATERAL DIGITAL SCREENING MAMMOGRAM 3D/2D WITH CAD: 07/14/2020 CLINICAL: Routine screening. Comparison is made to exams dated: 05/23/2014 mammogram, 04/30/2013 mammogram, and 02/05/2012 mammogram - [facility]. The tissue of both breasts is heterogeneously dense. This may lower the sensitivity of mammography. Current study was also evaluated with a Computer Aided Detection (CAD) system. No significant masses, calcifications, or other findings are seen in either breast. There has been no significant interval change. IMPRESSION: NEGATIVE There is no mammographic evidence of malignancy. A 1 year screening mammogram is recommended. This exam was interpreted at Station ID: [id number]. NOTE: For mammograms, a report in lay terms will be sent to the patient. Approximately 15% of breast malignancies will not be visualized mammographically. In the management of a palpable breast mass, a negative mammogram must not discourage biopsy of a clinically suspicious lesion. Electronically Signed By: Everardo otero/brenda:07/14/2020 17:17:38 letter sent: Normal Exam ACR BI-RADS Category 1: Negative 3341F
== END ==
PROVIDERS: PCP Student in an Organized Health Care Education/Training Program; Referring Provider Student in an Organized Health Care Education/Training Program; Visit Provider Student in an Organized Health Care Education/Training Program
DX: Z12.31 Encounter for screening mammogram for malignant neoplasm of breast (principal)
CPT/HCPCS: 77063; 77067

== ENCOUNTER → 2020-11-27 15:14 | Outpatient (CLI) | payer BC, SELFPAY ==
[2020-11-27] MEDS: COVID-19 VACC, Ad26(JANSSEN)/PF 0.5 ML IM (15:23)
== END ==
PROVIDERS: PCP Student in an Organized Health Care Education/Training Program; Visit Provider Internal Medicine
DX: Z23 Encounter for immunization (principal)
CPT/HCPCS: 0031A; 91303

== ENCOUNTER → 2021-11-09 14:10 | Outpatient (CLI) | payer BC, SELFPAY ==
--- NOTE | 2021-11-09 | DI.CT.S_ITS ---
PROCEDURE: CT SINUS SCREEN WO CON INDICATIONS: Chronic sinusitis, unspecified TECHNIQUE: Noncontrast 3.0 mm axial images acquired from the frontal sinuses to the mid-sella, with coronal and sagittal reformats. For radiation dose reduction, the following was used: automated exposure control, adjustment of mA and/or kV according to patient size. COMPARISON: None. FINDINGS: Image quality: Excellent. Paranasal sinuses are normally aerated. No mucosal thickening in the paranasal sinuses. No air-fluid levels identified in the paranasal sinuses. 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 The ostiomeatal units are patent bilaterally. Nasal septum is deviated to the right. No andre bullosa. Paradoxical left middle turbinates noted. No osseous thickening, osseous remodeling or osseous erosive changes. IMPRESSION: No paranasal sinus mucosal thickening or air-fluid levels. Dictated by: Deyanira Gaxiola MD, PhD on 11/09/2021 at 17:03 Approved by: Deyanira Gaxiola MD, PhD on 11/09/2021 at 17:04
== END ==
PROVIDERS: PCP Student in an Organized Health Care Education/Training Program; Referring Provider Student in an Organized Health Care Education/Training Program; Visit Provider Student in an Organized Health Care Education/Training Program
DX: J32.9 Chronic sinusitis, unspecified (principal)
CPT/HCPCS: 70486

== ENCOUNTER → 2022-05-08 15:08 | Outpatient (CLI) | payer BC, SELFPAY ==
--- NOTE | 2022-05-08 15:09 | DI.MG.S_ITS ---
BILATERAL DIGITAL SCREENING MAMMOGRAM 3D/2D WITH CAD: 05/08/2022 CLINICAL: Routine screening. Comparison is made to exams dated: 07/14/2020 mammogram, 05/23/2014 mammogram, and 11/12/2010 mammogram - [facility]. Both breasts are heterogeneously dense, which may obscure small masses (category c / 51-75% glandular tissue). Current study was also evaluated with a Computer Aided Detection (CAD) system. No significant masses, calcifications, or other findings are seen in either breast. There has been no significant interval change. IMPRESSION: NEGATIVE There is no mammographic evidence of malignancy. A 1 year screening mammogram is recommended. Based on the Tyrer Cuzick model (a risk assessment model) the patient's lifetime risk is 8.1% and her 10 year risk is 2.6%. According to the ACR, ACS, and NCCN guidelines, an annual breast MRI exam along with mammogram is recommended if the patient's lifetime risk is 20% or greater. This exam was interpreted at Station ID: [id number]. NOTE: For mammograms, a report in lay terms will be sent to the patient. Approximately 15% of breast malignancies will not be visualized mammographically. In the management of a palpable breast mass, a negative mammogram must not discourage biopsy of a clinically suspicious lesion. Electronically Signed By: Lb so/brenda:05/08/2022 16:54:11 letter sent: Normal Exam ACR BI-RADS Category 1: Negative 3341F
== END ==
PROVIDERS: PCP Student in an Organized Health Care Education/Training Program; Referring Provider Student in an Organized Health Care Education/Training Program; Visit Provider Student in an Organized Health Care Education/Training Program
DX: Z12.31 Encounter for screening mammogram for malignant neoplasm of breast (principal)
CPT/HCPCS: 77063; 77067

== ENCOUNTER → 2022-11-21 08:02 | Outpatient (CLI) | payer BC, SELFPAY ==
--- NOTE | 2022-11-21 | DI.US.S_ITS ---
PROCEDURE: US PELVIC COMPLETE INDICATIONS: POSTMENOPAUSAL BLEEDING. ESTROGEN/PROGESTERONE/TESTOSTERONE THERAPY X 1 YEAR. TECHNIQUE: Real-time scanning was performed of the pelvic organs, with image documentation. Additional endovaginal scanning was necessary due to incomplete visualization of the adnexal and endometrial structures by transabdominal scanning. COMPARISON: [facility], , US PELVIC COMPLETE, 01/12/2019, 13:11. FINDINGS: Uterus: Uterus is anteverted and normal in size at 11.5 x 8.2 x 7.9 cm. The myometrium is heterogeneous. The endometrium measures 6 mm combined thickness, although this is suboptimally visualized. There is an intramural fibroid along the left, posterior margin measuring 5.9 x 4.7 x 4.5 cm. Ovaries: Not visualized due to overlying bowel gas. Other: No pathologic free abdominal or pelvic fluid. IMPRESSION: The endometrial stripe measures 6 mm, but is suboptimally visualized. In the setting of postmenopausal bleeding, consider tissue sampling. Large intramural fibroid measuring 5.9 cm. We strive to produce accurate, complete, and clear reports of imaging services. To assist us in improving patient care, this report was composed using standard report templates and voice recognition software. Therefore, it may contain abnormal punctuation, insertions and/or omissions. Occasional wrong-word or sound-alike substitutions may occur. Though we review the report and make efforts to correct it, we do recommend that the report be read carefully in proper context to recognize any text inaccuracies. Dictated by: Akhil Cary M.D. on 11/21/2022 at 13:17 Approved by: Akhil Cary M.D. on 11/21/2022 at 13:19
== END ==
PROVIDERS: PCP Student in an Organized Health Care Education/Training Program; Referring Provider Nurse Practitioner; Visit Provider Nurse Practitioner
DX: N95.0 Postmenopausal bleeding (principal); D25.1 Intramural leiomyoma of uterus
CPT/HCPCS: 76830; 76856

== ENCOUNTER 2022-12-25 10:59 | Emergency (ER) | payer BC, SELFPAY ==
[2022-12-25 11:16] VITALS: BP 165/102; PULSE 80; RESP 20; TEMP 37.1; O2SAT 99; BMI 30.1
[2022-12-25] MEDS: TET,DIPH,PERTUSS(ACELL),VAC/PF 0.5 ML SYRINGE IM (12:31)
[2022-12-25] MEDS: IBUPROFEN 400 MG TABLET 600 MG PO (12:31)
--- NOTE | 2022-12-25 12:45 | ED.WOUNDLAC ---
HPI - Wound/Laceration <KWESI Eduardo - Last Filed: 12/25/22 12:51> General Chief Complaint: Wound/Laceration Stated Complaint: cut thumb T-1 Time Seen by Provider: 12/25/22 12:06 Source: patient Mode of arrival: Family Vehicle History of Present Illness HPI narrative: This is a 57-year-old female presents to the emergency department after she accidentally cut the dorsum of her hand over her right MCP joint while washing dishes last night. States that there was a chipped glass and she has 1 cm laceration over this joint, states that she put a butterfly bandage on it right afterwards, and has not seen it, denies any bleeding, states it is tender, denies foreign body, states that she needs a tetanus vaccination update. Related Data Home Medications Medication Instructions Recorded Confirmed losartan 100 mg tablet 100 mg PO DAILY 12/06/22 12/06/22 Previous Rx's Medication Instructions Recorded metoprolol succinate 25 mg capsule 25 mg PO DAILY #30 ea 02/12/19 sprinkle, ext. release 24 hr Allergies Allergy/AdvReac Type Severity Reaction Status Date / Time No Known Drug Allergies Allergy Verified 12/25/22 11:21 Review of Systems <KWESI Eduardo - Last Filed: 12/25/22 12:51> Review of Systems ROS Unobtainable: All systems reviewed & are unremarkable except as noted in HPI and below Patient History <KWESI Eduardo - Last Filed: 12/25/22 12:51> Medical History ETOH abuse SVT (supraventricular tachycardia) Surgical History History of S/P bunionectomy Social History Smoking Status: Current every day smoker alcohol intake: current substance use type: marijuana Smoking Status: Current every day smoker tobacco type: cigarettes alcohol intake frequency: 0-2 drinks per day Substance Use Type: does not use Exam <KWESI Eduardo - Last Filed: 12/25/22 12:51> Initial Vital Signs Initial Vital Signs: Vital Signs Temperature 98.7 F 12/25/22 11:16 Pulse Rate 80 12/25/22 11:16 Respiratory Rate 20 12/25/22 11:16 Blood Pressure 165/102 H 12/25/22 11:16 Pulse Oximetry 99 12/25/22 11:16 Oxygen Delivery Method Room Air 12/25/22 11:16 Skin General: elasticity normal, turgor normal and other Wounds: wounds noted laceration right dorsal hand size (1.0), bed pink, drainage serous, margins well approximated, without odor, open, sutures and other (Wounds cleansing and skin prep was completed, wound base is intact and superficial dermal layer remains lacerated without bleeding, foreign body, evidence of infection, no erythema and mild serosanguineous drainage. Steri-Strips were applied, without tension, allowed room for wound to breathe,) <Ildefonso Zimmer DO - Last Filed: 12/25/22 18:30> Initial Vital Signs Initial Vital Signs: Vital Signs Temperature 98.7 F 12/25/22 11:16 Pulse Rate 80 12/25/22 11:16 Respiratory Rate 20 12/25/22 11:16 Blood Pressure 165/102 H 12/25/22 11:16 Pulse Oximetry 99 12/25/22 11:16 Oxygen Delivery Method Room Air 12/25/22 11:16 Course <KWESI Eduardo - Last Filed: 12/25/22 12:51> Orders Ordered: Discontinued Medications Diphtheria/Tetanus/Acell Pertussis (Tet,Diph,Pertuss(Acell),Vac/Pf 0.5 Ml Syringe) 0.5 ml IM .ONCE ONE Stop: 12/25/22 12:08 Last Admin: 12/25/22 12:31 Dose: 0.5 ml Documented By: AMU Ibuprofen (Ibuprofen 400 Mg Tablet) 600 mg PO NOW ONE Stop: 12/25/22 12:08 Last Admin: 12/25/22 12:31 Dose: 600 mg Documented By: AMU Lidocaine HCl (Lidocaine 2% Inj Sdv 5ml) 1 ml INJ INTRA-OP ONE Stop: 12/25/22 12:31 Vital Signs Vital signs: Vital Signs - 8 hr 12/25/22 11:16 Temperature 98.7 F Pulse Rate 80 Respiratory Rate 20 Blood Pressure 165/102 H Pulse Oximetry 99 Oxygen Delivery Method Room Air <Ildefonso Zimmer DO - Last Filed: 12/25/22 18:30> Orders Ordered: Discontinued Medications Diphtheria/Tetanus/Acell Pertussis (Tet,Diph,Pertuss(Acell),Vac/Pf 0.5 Ml Syringe) 0.5 ml IM .ONCE ONE Stop: 12/25/22 12:08 Last Admin: 12/25/22 12:31 Dose: 0.5 ml Documented By: AMU Ibuprofen (Ibuprofen 400 Mg Tablet) 600 mg PO NOW ONE Stop: 12/25/22 12:08 Last Admin: 12/25/22 12:31 Dose: 600 mg Documented By: AMU Lidocaine HCl (Lidocaine 2% Inj Sdv 5ml) 1 ml INJ INTRA-OP ONE Stop: 12/25/22 12:31 Vital Signs Vital signs: Vital Signs - 8 hr 12/25/22 11:16 Temperature 98.7 F Pulse Rate 80 Respiratory Rate 20 Blood Pressure 165/102 H Pulse Oximetry 99 Oxygen Delivery Method Room Air MDM - Wound/Laceration <KWESI Eduardo - Last Filed: 12/25/22 12:51> [facility] Narrative Medical decision making narrative: Chief Complaint: Hand laceration Independent historian: Patient Differential diagnoses include but are not limited to: Skin laceration, vascular injury, ligamental injury, foreign body I have independently reviewed the patient's vital signs and nursing notes as well as prior records if available. No imaging necessary as there is no foreign body, can see into the wound without any palpable foreign body and there was no breaking of the glass when patient cut herself. Patient's tetanus was updated, wound cleansing, skin prep, and reinforcement with Steri-Strips and a Band-Aid was applied, joint was splinted with the Band-Aid to prevent from opening. Patient was shown how to change her dressing how to reinforce, she understands to return for new worsening condition, redness, streaking up her hand, mobility changes or signs of infection. She was provided ibuprofen for pain and took Tylenol just prior to arrival. Social considerations that may affect disposition: none Questions are addressed and there is agreement with the plan and for follow-up. Patient is appropriate for outpatient management. MIPS: This encounter doesn't have any diagnosis' associated with MIPS criteria. Discharge Plan Departure Patient Disposition: Home Clinical Impression: Laceration of hand Qualifiers: Encounter type: initial encounter Foreign body presence: without foreign body Laterality: right Qualified Code(s): S61.411A - Laceration without foreign body of right hand, initial encounter Instructions: DI for Laceration Repair-Skin Closure Strips Activity Restrictions/Additional Instructions: *You have been diagnosed with a laceration which is allowed to heal by secondary intention. Please replace the Band-Aid morning and night until the skin has healed, it may take approximally 7 days for it to heal and then you can go without a Band-Aid after skin does not have drainage. Please replace the Steri-Strips if they fall off as needed, avoid closing the wound or covering it up, allow it to heal and breathe. I hope it does not hurt too much, it was nice to meet you, your tetanus was updated today, take Tylenol and or ibuprofen together as needed for your pain every 6 hours. If you develop any redness or streaking up your hand or your arm, please return for antibiotics. Thank you for coming in today. *What to do: *Please continue to take your regular medications as directed. [ ] New medication prescriptions sent to your pharmacy: [ ] [ ] New medication written as a paper prescription [x ] No new medications given *Please follow up with your primary care provider in 2-3 days, call for an appointment. Let them know you were seen in the Emergency Department and that we asked that you be seen for follow-up. We will electronically transmit a record of today's note if your PCP is in our system *If you do not have a primary care provider please contact [phone] to establish care with one of the [facility] primary care providers. *Return to Emergency Department if you should have any new, worsening, or concerning symptoms, such as [fever greater than 101F, chills, worsening pain, persistent vomiting or other bothersome symptoms]. Prescriptions: No Action losartan 100 mg tablet 100 mg PO DAILY metoprolol succinate 25 mg cap,sprinkle,ER 24hr dose pack 25 mg PO DAILY Qty: 30 0RF Referrals: Miscellaneous,Doctor, [Primary Care Provider] - Stand Alone Forms: Patient Portal/API <Ildefonso Zimmer DO - Last Filed: 12/25/22 18:30> [facility] Attestation: I was immediately available in the department for consultation. This documentation has been reviewed and I agree with assessment and plan. Supervised by Ildefonso Zimmer, DO
== END 2022-12-25 12:51 | disposition home or self-care (01) ==
PROVIDERS: Emergency Provider Nurse Practitioner Critical Care Medicine
DX: S61.011A Laceration without foreign body of right thumb without damage to nail, initial encounter (principal); W25.XXXA Contact with sharp glass, initial encounter; Z23 Encounter for immunization
CPT/HCPCS: 90471; 99283; 90715

== ENCOUNTER → 2023-09-22 | Outpatient (CLI) | payer BC, SELFPAY ==
--- NOTE | 2023-09-22 | DI.MG.S_ITS ---
BILATERAL DIGITAL SCREENING MAMMOGRAM 3D/2D WITH CAD: 09/22/2023 CLINICAL: Routine screening. Comparison is made to exams dated: 05/08/2022 mammogram and 07/14/2020 mammogram - [facility]. Both breasts are heterogeneously dense, which may obscure small masses (category c / 51-75% glandular tissue). Current study was also evaluated with a Computer Aided Detection (CAD) system. No significant masses, calcifications, or other findings are seen in either breast. There has been no significant interval change. IMPRESSION: NEGATIVE There is no mammographic evidence of malignancy. A 1 year screening mammogram is recommended. Based on the Tyrer Cuzick model (a risk assessment model) the patient's lifetime risk is 8.2% and her 10 year risk is 2.9%. According to the ACR, ACS, and NCCN guidelines, an annual breast MRI exam along with mammogram is recommended if the patient's lifetime risk is 20% or greater. This exam was interpreted at Station ID: [id number]. NOTE: For mammograms, a report in lay terms will be sent to the patient. Approximately 15% of breast malignancies will not be visualized mammographically. In the management of a palpable breast mass, a negative mammogram must not discourage biopsy of a clinically suspicious lesion. Electronically Signed By: Wilbert krause/brenda:09/23/2023 13:47:35 letter sent: Normal Exam ACR BI-RADS Category 1: Negative 3341F
== END ==
PROVIDERS: PCP Registered Nurse; Referring Provider Registered Nurse; Visit Provider Registered Nurse
DX: Z12.31 Encounter for screening mammogram for malignant neoplasm of breast (principal); R92.333 Mammographic heterogeneous density, bilateral breasts
CPT/HCPCS: 77063; 77067

== ENCOUNTER → 2024-01-22 12:36 | Outpatient (CLI) | payer BC, SELFPAY ==
--- NOTE | 2024-01-22 12:39 | DI.RAD.S_ITS ---
PROCEDURE: XR KNEE RT 3V INDICATIONS: SPRAIN IN RIGHT KNEE TECHNIQUE: 3 views of the knee were acquired. COMPARISON: None. FINDINGS: Bones: Stippled serpiginous calcification noted in the distal femoral metaphysis. Mild medial joint space narrowing marginal osteophyte. Moderate joint effusion noted. Ovoid fibrous cortical defect noted in the proximal fibula Soft tissues: No joint effusion. No suspicious soft tissue calcifications. 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 Fibular fibrous cortical defect. Mild medial compartment osteoarthritis with moderate joint effusion Approved by: Errol Back M.D. on 01/22/2024 at 20:29
== END ==
PROVIDERS: PCP Registered Nurse; Referring Provider Registered Nurse; Visit Provider Registered Nurse
DX: S83.411A Sprain of medial collateral ligament of right knee, initial encounter (principal); M17.11 Unilateral primary osteoarthritis, right knee; M89.8X6 Other specified disorders of bone, lower leg; M25.461 Effusion, right knee; X58.XXXA Exposure to other specified factors, initial encounter
CPT/HCPCS: 73562

== ENCOUNTER → 2024-02-13 14:21 | Outpatient (CLI) | payer BC, SELFPAY ==
--- NOTE | 2024-02-13 14:24 | DI.RAD.S_ITS ---
PROCEDURE: XR LUMBAR SPINE 2-3V INDICATIONS: LOW BACK PAIN TECHNIQUE: 3 views of the lumbar spine were acquired. COMPARISON: None. FINDINGS: Bones: 5 [id number] vertebrae are present. There is normal bony alignment. No vertebral body compression fractures. No suspicious bony lesions. Lower lumbar spine disc space narrowing and hypertrophic facet joints Soft tissues: Overlying bowel gas pattern is normal. No suspicious soft tissue calcifications. IMPRESSION: Lower lumbar spine degenerative disc disease and arthropathy Approved by: Errol Back M.D. on 02/13/2024 at 16:21
== END ==
PROVIDERS: PCP Registered Nurse; Referring Provider Registered Nurse; Visit Provider Registered Nurse
DX: M51.16 Intervertebral disc disorders with radiculopathy, lumbar region (principal); M47.26 Other spondylosis with radiculopathy, lumbar region; M54.50 Low back pain, unspecified
CPT/HCPCS: 72100

== ENCOUNTER → 2024-10-11 14:53 | Outpatient (CLI) | payer BC, SELFPAY ==
--- NOTE | 2024-10-11 | DI.MG.S_ITS ---
BILATERAL DIGITAL SCREENING MAMMOGRAM 3D/2D WITH CAD: 10/11/2024 CLINICAL: Routine screening. Comparison is made to exams dated: 09/22/2023 mammogram, 05/08/2022 mammogram, and 07/14/2020 mammogram - [facility]. The breasts are heterogeneously dense, which may obscure small masses (category c / 51-75% glandular tissue). Current study was also evaluated with a Computer Aided Detection (CAD) system. There is a new oval focal asymmetry with an obscured margin in the right breast at 11 o'clock posterior depth. No other significant masses, calcifications, or other findings are seen in either breast. IMPRESSION: INCOMPLETE: NEED ADDITIONAL IMAGING EVALUATION The new oval focal asymmetry in the right breast has a differential diagnosis of a cyst and is indeterminate. Additional views with possible ultrasound are recommended. Based on the Tyrer Cuzick model (a risk assessment model) the patient's lifetime risk is 8.1% and her 10 year risk is 3.0%. According to the ACR, ACS, and NCCN guidelines, an annual breast MRI exam along with mammogram is recommended if the patient's lifetime risk is 20% or greater. This exam was interpreted at Station ID: [id number]. NOTE: For mammograms, a report in lay terms will be sent to the patient. Approximately 15% of breast malignancies will not be visualized mammographically. In the management of a palpable breast mass, a negative mammogram must not discourage biopsy of a clinically suspicious lesion. Electronically Signed By: Lb Osborne M.D. [facility] [place]/:10/12/2024 08:36:29 letter sent: Additional Imaging Needed ACR BI-RADS Category 0: Incomplete: Need Additional Imaging Evaluation
== END ==
PROVIDERS: PCP Registered Nurse; Referring Provider Registered Nurse; Visit Provider Registered Nurse
DX: Z12.31 Encounter for screening mammogram for malignant neoplasm of breast (principal); R92.333 Mammographic heterogeneous density, bilateral breasts
CPT/HCPCS: 77063; 77067

== ENCOUNTER → 2024-11-18 12:00 | Outpatient (CLI) | payer BC, SELFPAY ==
--- NOTE | 2024-11-18 12:01 | DI.MG.S_ITS ---
MM diagnostic mammo unilat RT, US breast RT limited: 11/18/2024 BI-RADS: 5 CLINICAL: 59-year old female for right diagnostic mammogram and right diagnostic breast u/s that is a recall from screening, bilateral, digital, tomosynthesis, w/mammo cad on 10/11/2024. [facility]%. No personal or first-degree family history of breast cancer. PRIOR EXAMS 10/11/2024, 09/22/2023, 05/08/2022, 07/14/2020. MAMMOGRAPHY TECHNIQUE: 2D and 3D (tomosynthesis) digital mammographic views obtained, with additional images as needed for full coverage. Current study was also evaluated with a Computer Aided Detection (CAD) system. ULTRASOUND TECHNIQUE Real-time owens scale and color doppler imaging of the area of clinical interest was performed with image documentation. TARGETED Right Breast Ultrasound: Real-time ultrasound exam was performed focused to area of clinical and/or imaging concern. Right Axilla. DENSITY Right: C. The breasts are heterogeneously dense, which may obscure small masses. MAMMOGRAPHY FINDINGS Right (finding-1): Upper Outer at 11:00, Middle depth: There is a focal asymmetry present. ULTRASOUND FINDINGS Right (finding-1): Upper Outer at 11:00, 5 cm from nipple, measuring 2 x 1.8 x 1.3 cm: There is an irregularly shaped, hypoechoic mass. Doppler shows internal vascularity. Right: Axillary Tail, measuring 0.7 cm: Cortex 0.5 cm. There is a lymph node with eccentric cortical thickening present. Right: Upper Outer at 11:00, 6 cm from nipple, measuring 0.6 x 0.5 x 0.4 cm: There is an oval mass. Doppler shows internal vascularity. IMPRESSION: Right (Mass): Upper Outer at 11:00, 5 cm from nipple, measuring 2 x 1.8 x 1.3 cm * Highly Suggestive of Malignancy. Right (Lymph Node): Axillary Tail, measuring 0.7 cm * High Suspicion for Malignancy. Right (Mass): Upper Outer at 11:00, 6 cm from nipple, measuring 0.6 x 0.5 x 0.4 cm * High Suspicion for Malignancy. RECOMMENDATIONS Right: Upper Outer at 11:00, 5 cm from nipple * Ultrasound-guided biopsy for further evaluation. Right: Axillary Tail * Ultrasound-guided biopsy for further evaluation. Right: Upper Outer at 11:00, 6 cm from nipple * Ultrasound-guided biopsy for further evaluation (Deferred biopsy due to close proximity to the dominant mass.). OVERALL ASSESSMENT CATEGORY BI-RADS-5: Highly Suggestive of Malignancy. ELECTRONICALLY SIGNED: Lb Osborne M.D. on 11/18/2024 at 02:19:37 PM Interpreting Station ID: [id number]
== END ==
LOC: MAMMO 12:01
PROVIDERS: PCP Registered Nurse; Referring Provider Registered Nurse; Visit Provider Registered Nurse
DX: R92.8 Other abnormal and inconclusive findings on diagnostic imaging of breast (principal); N63.11 Unspecified lump in the right breast, upper outer quadrant; R59.0 Localized enlarged lymph nodes; R92.333 Mammographic heterogeneous density, bilateral breasts
CPT/HCPCS: 76642; 77065; G0279

== ENCOUNTER → 2025-02-25 08:40 | Outpatient (CLI) | payer BC, SELFPAY ==
[2025-02-25 09:36] LABS: Add Manual Diff / Slide Review NO; Basophils Absolute Auto 0 /uL (0-100); Basophils Percent Auto 0.3 % (0-2); Eosinophils Absolute Auto 0 /uL (0-450); Eosinophils Percent Auto 0.7 % (2-4); Hematocrit 35.4 % (36-46); Hemoglobin 12.3 g/dL (12.0-16.0); Lymphocytes Absolute Auto 700 /uL (1100-4500); Lymphocytes Percent Auto 17.5 % (25-40); Mean Corpuscular HGB Conc 34.9 % (30-36); Mean Corpuscular Hemoglobin 30.7 PG (26-34); Mean Corpuscular Volume 88.1 fL (80-100); Monocytes Absolute Auto 200 /uL (0-900); Monocytes Percent Auto 4.4 % (3-14); Neutrophils Absolute Auto 3200 /uL (1500-7000); Neutrophils Percent Auto 77.1 % (50-75); Platelet Count 207 X10^3/uL (150-400); Red Blood Cell Count 4.02 X10^6/uL (4.0-5.2); Red Cell Distribution Width 12.5 % (11.6-14.8); White Blood Cell Count 4.2 X10^3/uL (4.5-11.0)
[2025-02-25 10:10] LABS: HEMOLYSIS < 15 (0-50); Iron 196 ug/dL (37-170)
[2025-02-25 10:15] LABS: Alanine Aminotransferase 22 IU/L (<35); Albumin 4.5 g/dL (3.5-5.0); Albumin Globulin Ratio 1.8 (1.0-2.8); Alkaline Phosphatase 54 U/L (38-126); Aspartate Aminotransferase 26 IU/L (14-36); BUN Creatinine Ratio 24.6 (6-22); Bilirubin Total 0.7 mg/dL (0.2-1.3); Blood Urea Nitrogen 14 mg/dL (7-17); C-Reactive Protein Quant 2.8 mg/dL (<1.0); Calcium 9.6 mg/dL (8.4-10.2); Carbon Dioxide 23 mmol/L (22-32); Chloride 108 mmol/L (98-107); Estimated Glomerular Filt Rate > 60 mL/min (>60); Globulin 2.5 g/dL (1.7-4.1); Glucose 86 mg/dL (70-99); HEMOLYSIS < 15 (0-50); Potassium 4.2 mmol/L (3.4-5.1); Sodium 140 mmol/L (137-145)
[2025-02-25 10:23] LABS: Total Iron Binding Capacity 202 ug/dL (265-497); Transferrin 162 mg/dL (206-381)
[2025-02-25 10:26] LABS: Percent Iron Saturation 97 % (15-50)
[2025-02-25 10:28] LABS: Free T3, Triiodothyronine Free 2.83 pg/mL (2.77-5.27); Free T4, Direct Thyroxine 1.14 ng/dL (0.78-2.19); Vitamin D 25 Hydroxy (D3) 87.2 ng/mL (30.0-100.0)
[2025-02-25 10:31] LABS: Follicle Stimulating Hormone 38.8 mIU/mL
[2025-02-25 10:45] LABS: Ferritin 553 ng/mL (11-264)
[2025-02-25 10:46] LABS: Estradiol, Total 13.8 pg/mL
[2025-02-25 11:03] LABS: Vitamin B12 943 pg/mL (239-931)
[2025-02-25 11:16] LABS: Progesterone, Total < 0.08 ng/mL
[2025-02-25 11:38] LABS: Hemoglobin A1C% w Est Avg Glu 4.8 % (4.0-6.0)
[2025-02-26 06:36] LABS: CA 15-3 12.6 U/mL (0.0-25.0); Cancer Antigen 27.29 25.6 U/mL (0.0-38.6)
[2025-02-28 07:38] LABS: Glucose-6-Phosphate Dehydrogen 336 (127-427)
[2025-03-07 10:36] LABS: Percent Free Testosterone 1.61 % (0.50-2.80); Testosterone Free <.04 ng/dL (0.10-0.85); Testosterone Total <2.5 ng/dL (.)
== END ==
PROVIDERS: PCP Registered Nurse; Referring Provider Naturopath; Visit Provider Naturopath
DX: Z13.1 Encounter for screening for diabetes mellitus (principal); C50.911 Malignant neoplasm of unspecified site of right female breast; N95.1 Menopausal and female climacteric states; D50.9 Iron deficiency anemia, unspecified; D51.8 Other vitamin B12 deficiency anemias; D51.9 Vitamin B12 deficiency anemia, unspecified; E03.9 Hypothyroidism, unspecified; E07.9 Disorder of thyroid, unspecified; E55.9 Vitamin D deficiency, unspecified; F41.1 Generalized anxiety disorder; G47.9 Sleep disorder, unspecified; I11.9 Hypertensive heart disease without heart failure; N95.9 Unspecified menopausal and perimenopausal disorder; R53.1 Weakness; R53.83 Other fatigue
CPT/HCPCS: 36415; 80053; 82306; 82607; 82670; 82728; 82955; 83001; 83036; 83540; 83550; 84144; 84402; 84403; 84439; 84481; 85025; 85041; 86140; 86300

== ENCOUNTER 2025-03-20 13:59 | Emergency (ER) | payer BC, SELFPAY ==
[2025-03-20 14:21] VITALS: BP 126/68; PULSE 73; RESP 18; TEMP 36.6; O2SAT 99
--- NOTE | 2025-03-20 15:23 | PC.NURSE ---
Pt was able to have a large BM, requests to leave. Has signed a VDC.
== END 2025-03-20 15:27 | disposition left against medical advice (07) ==
PROVIDERS: Emergency Provider Emergency Medicine; PCP Registered Nurse
CPT/HCPCS: 99281

== ENCOUNTER 2025-04-01 12:58 | Emergency (ER) | payer OTHER, BC, SELFPAY ==
[2025-04-01] VITALS (10 sets, daily range): BP systolic 100–114; BP diastolic 63–69; PULSE 82–95; RESP 16; TEMP 36.9; O2SAT 96–99; BMI 26.0
[2025-04-01 13:41] LABS: Add Manual Diff / Slide Review NO; Hematocrit 27.8 % (36-46); Hemoglobin 9.6 g/dL (12.0-16.0); Lymphocytes Absolute Auto 100 /uL (1100-4500); Mean Corpuscular HGB Conc 34.4 % (30-36); Mean Corpuscular Hemoglobin 31.6 PG (26-34); Mean Corpuscular Volume 91.6 fL (80-100); Platelet Count 146 X10^3/uL (150-400)
[2025-04-01 14:00] LABS: Alanine Aminotransferase 419 IU/L (<35); Albumin 4.1 g/dL (3.5-5.0); Albumin Globulin Ratio 1.2 (1.0-2.8); Alkaline Phosphatase 137 U/L (38-126); Blood Urea Nitrogen 19 mg/dL (7-17); Calcium 8.7 mg/dL (8.4-10.2); Carbon Dioxide 24 mmol/L (22-32); Chloride 99 mmol/L (98-107); Estimated Glomerular Filt Rate > 60 mL/min (>60); Globulin 3.3 g/dL (1.7-4.1); Glucose 119 mg/dL (70-99); HEMOLYSIS < 15 (0-50); Lipase 42 U/L (23-300); Potassium 3.5 mmol/L (3.4-5.1); Sodium 133 mmol/L (137-145); Total Protein 7.4 g/dL (6.3-8.2)
--- NOTE | 2025-04-01 14:08 | ED.FEVER ---
HPI - Fever General Chief Complaint: Fever Stated Complaint: low grade fever Time Seen by Provider: 04/01/25 13:24 History of Present Illness HPI Narrative: Patient is a 60-year-old female past medical history of alcohol abuse, breast cancer currently undergoing chemo at [facility], she states that she is on around 6 it yesterday. She states that yesterday she was feeling little lethargic but she states this is normal, she states that she did spike a fever last night at 104 F, she states that she is feeling better at this time she has no complaints. However she states that she was told to always come to the ER if she spikes a fever while undergoing chemo. She states that she is in the process of getting a repeat imaging of her chest to determine whether or not she would be a surgical candidate. Related Data Home Medications ?Medication ?Instructions ?Recorded ?Confirmed alprazolam PO 04/01/25 04/01/25 dexamethasone [Decadron] PO 04/01/25 04/01/25 escitalopram oxalate PO 04/01/25 04/01/25 ivermectin PO 04/01/25 04/01/25 ondansetron [Zofran ODT] PO 04/01/25 04/01/25 prochlorperazine maleate PO 04/01/25 04/01/25 Previous Rx's ?Medication ?Instructions ?Recorded metoprolol succinate 25 mg capsule 25 mg PO DAILY #30 ea 02/12/19 amritle, ext. release 24 hr Allergies Allergy/AdvReac Type Severity Reaction Status Date / Time No Known Drug Allergies Allergy Verified 04/01/25 12:37 Review of Systems Review of Systems Narrative: General: Positive fever denies, chills, weight loss HEENT: Denies headache, eye drainage, eye irritation, head trauma, sore throat, voice change Cardiovascular: Denies any chest pain, palpitations, tachycardia Respiratory: Denies any shortness of breath, cough, wheeze, stridor GI/: Denies any abdominal pain, nausea, vomiting, diarrhea, bright red blood per rectum, melanotic stools, urinary frequency, urinary retention, dysuria, hematuria MSK: Denies any joint pain, muscle pains, swelling Skin: Denies any rashes, lesions, discoloration Neuro: Denies any headache, lightheadedness, dizziness, fainting, weakness Psych: Denies SI/HI Patient History Medical History SVT (supraventricular tachycardia) ETOH abuse Surgical History History of S/P bunionectomy Social History alcohol intake: current substance use type: marijuana tobacco type: cigarettes alcohol intake frequency: 0-2 drinks per day Exam Narrative Exam Narrative: General: Cooperative, well-developed, not in acute distress HEENT: Normocephalic, atraumatic, PERRLA, normal sclera, eyelids normal Neck: Active full range of motion, atraumatic Chest: Normal to inspection, negative crepitus, no overlying erythema ecchymosis Respiratory: Normal respiratory effort, not in acute respiratory distress, clear to auscultation bilaterally negative cough, wheeze, tachypnea, rhonchi, rales Cardiology: Regular rate rhythm negative gallop, murmur, rubs GI/: No tenderness to palpation, soft, non rigid, normal to inspection, exam deferred MSK: Full active range of motion in all 4 extremities, atraumatic, no tenderness to palpation of any bony prominences Skin: Port noted to the left subclavicular region no overlying erythema Neuro: Alert awake oriented x3, moves all 4 extremities spontaneously, cranial nerves intact, able to answer all questions appropriately follows commands appropriately Psych: Cooperative, negative suicidal or homicidal ideations Initial Vital Signs Initial Vital Signs: Vital Signs Temperature 98.4 F 04/01/25 13:03 Pulse Rate 89 04/01/25 13:03 Respiratory Rate 16 04/01/25 13:03 Blood Pressure 107/64 04/01/25 13:03 Pulse Oximetry 97 04/01/25 13:03 Oxygen Delivery Method Room Air 04/01/25 13:03 Course Orders Ordered: ED Orders 04/01/25 13:07 Covid-19 + FLU A/B + RSV - PCR Stat 04/01/25 13:11 Complete Blood Count AUTO DIFF Stat 04/01/25 13:32 Comprehensive Metabolic Panel Stat Lipase Stat Urine Culture Stat Urine Microscopic Stat 04/01/25 14:20 CXR [XR chest 1V] Stat 04/01/25 14:46 Blood Culture Stat Ondansetron HCl (Ondansetron 4 Mg/2 Ml Inj) 4 mg IV NOW PRN PRN Reason: Nausea And Vomiting Ondansetron HCl (Ondansetron 4 Mg Odt) 4 mg PO NOW PRN PRN Reason: Nausea And Vomiting Vital Signs Vital signs: Vital Signs - 8 hr 04/01/25 13:03 Temperature 98.4 F Pulse Rate 89 Respiratory Rate 16 Blood Pressure 107/64 Pulse Oximetry 97 Oxygen Delivery Method Room Air MDM - Fever Differential Diagnosis Differential diagnosis: Likely cellulitis, fever of unknown origin, community acquired pneumonia, pyelonephritis, sepsis and other (Drug ADR) Lab Data 04/01/25 13:11 04/01/25 13:32 Labs: Lab Results 04/01/25 04/01/25 04/01/25 Range/Units 13:07 13:11 13:32 WBC 3.2 L (4.5-11.0) X10^3/uL RBC 3.03 L (4.0-5.2) X10^6/uL Hgb 9.6 L (12.0-16.0) g/dL Hct 27.8 L (36-46) % MCV 91.6 (80-100) fL MCH 31.6 (26-34) PG MCHC 34.4 (30-36) % RDW 15.0 H (11.6-14.8) % Plt Count 146 L (150-400) X10^3/uL Neut % (Auto) 87.2 H (50-75) % Lymph % (Auto) 3.5 L (25-40) % [place] % (Auto) 7.4 (3-14) % Eos % (Auto) 1.0 L (2-4) % Baso % (Auto) 0.9 (0-2) % Neut # (Auto) 2800 (0342-2436) /uL Lymph # (Auto) 100 L (9958-7383) /uL [place] # (Auto) 200 (0-900) /uL Eos # (Auto) 0 (0-450) /uL Baso # (Auto) 0 (0-100) /uL Sodium 133 L (137-145) mmol/L Potassium 3.5 (3.4-5.1) mmol/L Chloride 99 (98-107) mmol/L Carbon Dioxide 24 (22-32) mmol/L BUN 19 H (7-17) mg/dL Creatinine 0.86 (0.52-1.04) mg/dL Estimated GFR > 60 (>60) mL/min BUN/Creatinine Ratio 22.1 H (6-22) Glucose 119 H (70-99) mg/dL Calcium 8.7 (8.4-10.2) mg/dL Total Bilirubin 1.1 (0.2-1.3) mg/dL AST 242 H (14-36) IU/L ALT 419 H (<35) IU/L Alkaline Phosphatase 137 H (38-126) U/L Total Protein 7.4 (6.3-8.2) g/dL Albumin 4.1 (3.5-5.0) g/dL Globulin 3.3 (1.7-4.1) g/dL Albumin/Globulin Ratio 1.2 (1.0-2.8) Lipase 42 (23-300) U/L Urine RBC 1-5/hpf (0-5/HPF) Urine WBC 1-5/hpf (0-5/HPF) Ur Squamous Epith Cells 1-5 /hpf (0-5/HPF) Calcium Oxalate Crystal Occasional H Urine Bacteria Occasional (0-1) (None) Ur Culture Indicated? TNP Vol Urine Centrifuged 10ml (spun) SARS-CoV-2 (PCR) Negative (Negative) Influenza A (RT-PCR) Flu a negative (NEGATIVE) Influenza B (RT-PCR) Flu b negative (NEGATIVE) RSV (PCR) Negative (Negative) Urine Dip Bedside Urine Glucose Negative Bedside Urine Bilirubin - Negative Bedside Urine Ketone - Negative Urine Specific [place] 1.025 Bedside Urine Occult Blood + Bedside Urine pH 6.0 Bedside Urine Protein +/- 15 Bedside Urine Urobilinogen - Negative Bedside Urine Nitrite - Negative Bedside Urine Leukocytes - Negative Esterase Imaging Data Chest x-ray: Radiologist's Impression: [address] [id number] XRay Report Signed Patient: Abdias Menijvar MR#: [id number] : 1965 Acct:[id number] Age/Sex: 60 / F Date of Service: 04/01/25 Loc: ED Accession Number: [id number] Procedure: XR chest 1V Ordering Provider: Dong Obrien D.O. PROCEDURE: XR CHEST 1V INDICATIONS: pt on chemo with fever TECHNIQUE: One view of the chest was acquired. COMPARISON: None. FINDINGS: Surgical changes and devices: Port-A-Cath from left-sided approach extends into the distal SVC. Lungs and pleura: Lungs are difficult to accurately assess due to relatively prominent reduced inspiratory volume. No pleural effusions or pneumothorax. Mediastinum: Mediastinal contours appear normal. Heart size is normal. Bones and chest wall: No suspicious bony lesions. Overlying soft tissues appear unremarkable. IMPRESSION: Reduced inspiratory volume, no definite acute disease when this is taken into account. Central line appears in normal position. MDM Narrative Medical decision making narrative: Patient is a 60-year-old female with triple negative breast cancer currently undergoing chemo at [facility], patient states that she is on 6 the head of 12 chemo, said she had it yesterday, she states that after she had a fever at 104 F. patient states that she did take Tylenol and had complete resolution of her symptoms, however she states that she was told to go to the ER if she ever spikes a fever. She states that she feels completely normal she is not having any chest pain shortness of breath headache visual disturbance nausea and vomiting or any other GI/ symptoms at this time. Lab work did show mild leukopenia of 3.2, hemoglobin 9.6, however this would be consistent with the patient's recent chemo, Chem panel unremarkable, with the exception that patient with elevated liver functions however she has no abdominal pain nausea vomiting bilirubin normal, most likely reactive in nature she states that she will follow up with her primary care doctor for repeat lab work for this, urinalysis not consistent with acute urinary tract infection, did obtain blood cultures, informed patient we will call her if these are abnormal. She feels comfortable going home and following up with her specialists. She was given strict return precautions he verbalized understanding of this and agrees to being discharged home with outpatient follow up Discharge Plan Departure Patient Disposition: Home Clinical Impression: Fever Activity Restrictions/Additional Instructions: Please follow up with your hematology oncology team as well as your primary care doctor Please read the discharge instructions sheet carefully and bring all papers to all doctor follow-up visits, as it may contain information that your doctor may want to see. Disease processes change and evolve, if your symptoms worsen or if you develop any new symptoms that are concerning to you please return for evaluation. Your evaluation today does not show any evidence of any life-threatening/serious illnesses requiring admission to the hospital or surgery. Please follow-up with your doctor for re-evaluation in approximately 1 day. Seek immediate medical attention for any worrisome symptoms. *If you do not have a primary care provider please contact the [facility] Resource line at [phone]. They will ask some questions about your medical history and help get you set up with a doctor in the community. Prescriptions: No Action alprazolam PO dexamethasone [Decadron] PO escitalopram oxalate PO ivermectin PO ondansetron [Zofran ODT] PO prochlorperazine maleate PO metoprolol succinate 25 mg cap,sprinkle,ER 24hr dose pack 25 mg PO DAILY Qty: 30 0RF Referrals: Debra Quintanilla ARNP [Primary Care Provider, Family Practice] Stand Alone Forms: Patient Portal/API
[2025-04-01 14:18] LABS: COVID-19 CEPHEID 4-PLEX PCR Negative (Negative); Influenza A - CEPHEID Flu A NEGATIVE (NEGATIVE); Influenza B - CEPHEID Flu B NEGATIVE (NEGATIVE)
--- NOTE | 2025-04-01 14:20 | DI.RAD.S_ITS ---
PROCEDURE: XR CHEST 1V INDICATIONS: pt on chemo with fever TECHNIQUE: One view of the chest was acquired. COMPARISON: None. FINDINGS: Surgical changes and devices: Port-A-Cath from left-sided approach extends into the distal SVC. Lungs and pleura: Lungs are difficult to accurately assess due to relatively prominent reduced inspiratory volume. No pleural effusions or pneumothorax. Mediastinum: Mediastinal contours appear normal. Heart size is normal. Bones and chest wall: No suspicious bony lesions. Overlying soft tissues appear unremarkable. IMPRESSION: Reduced inspiratory volume, no definite acute disease when this is taken into account. Central line appears in normal position. Dictated by: Magdi Crockett M.D. on 04/01/2025 at 15:13 Approved by: Magdi Crockett M.D. on 04/01/2025 at 15:14
== END 2025-04-01 17:03 | disposition home or self-care (01) ==
PROVIDERS: Emergency Provider Student in an Organized Health Care Education/Training Program; PCP Registered Nurse
DX: R50.9 Fever, unspecified (principal); C50.919 Malignant neoplasm of unspecified site of unspecified female breast
CPT/HCPCS: 36415; 71045; 80053; 81003; 81015; 83690; 85025; 87040; 87086; 87637; 99283; 99284

== ENCOUNTER → 2025-04-14 11:51 | Outpatient (CLI) | payer BC, SELFPAY ==
[2025-04-14 12:55] LABS: Alanine Aminotransferase 743 IU/L (<35); Albumin 3.7 g/dL (3.5-5.0); Albumin Globulin Ratio 1.1 (1.0-2.8); Alkaline Phosphatase 249 U/L (38-126); Blood Urea Nitrogen 25 mg/dL (7-17); Calcium 9.2 mg/dL (8.4-10.2); Carbon Dioxide 25 mmol/L (22-32); Chloride 101 mmol/L (98-107); Estimated Glomerular Filt Rate > 60 mL/min (>60); Globulin 3.5 g/dL (1.7-4.1); Glucose 114 mg/dL (70-99); HEMOLYSIS < 15 (0-50); Potassium 4.3 mmol/L (3.4-5.1); Sodium 134 mmol/L (137-145); Total Protein 7.2 g/dL (6.3-8.2)
== END ==
PROVIDERS: PCP Registered Nurse; Referring Provider Physician Assistant; Visit Provider Physician Assistant
DX: C50.411 Malignant neoplasm of upper-outer quadrant of right female breast (principal); Z17.1 Estrogen receptor negative status [ER-]
CPT/HCPCS: 36415; 80053

== ENCOUNTER → 2025-04-16 12:02 | Outpatient (CLI) | payer OTHER, SELFPAY ==
[2025-04-16 13:24] LABS: Alanine Aminotransferase 660 IU/L (<35); Albumin 3.8 g/dL (3.5-5.0); Albumin Globulin Ratio 1.2 (1.0-2.8); Alkaline Phosphatase 206 U/L (38-126); Blood Urea Nitrogen 31 mg/dL (7-17); Calcium 9.3 mg/dL (8.4-10.2); Carbon Dioxide 25 mmol/L (22-32); Chloride 101 mmol/L (98-107); Estimated Glomerular Filt Rate > 60 mL/min (>60); Globulin 3.3 g/dL (1.7-4.1); Glucose 95 mg/dL (70-99); HEMOLYSIS < 15 (0-50); Potassium 4.5 mmol/L (3.4-5.1); Sodium 133 mmol/L (137-145); Total Protein 7.1 g/dL (6.3-8.2)
== END ==
PROVIDERS: PCP Registered Nurse; Referring Provider Physician Assistant; Visit Provider Physician Assistant
DX: C50.411 Malignant neoplasm of upper-outer quadrant of right female breast (principal); Z17.1 Estrogen receptor negative status [ER-]
CPT/HCPCS: 36415; 80053

== ENCOUNTER → 2025-04-18 13:16 | Outpatient (CLI) | payer BC, SELFPAY ==
[2025-04-18 14:25] LABS: Alanine Aminotransferase 605 IU/L (<35); Albumin 3.8 g/dL (3.5-5.0); Albumin Globulin Ratio 1.2 (1.0-2.8); Alkaline Phosphatase 201 U/L (38-126); Blood Urea Nitrogen 28 mg/dL (7-17); Calcium 9.2 mg/dL (8.4-10.2); Carbon Dioxide 25 mmol/L (22-32); Chloride 100 mmol/L (98-107); Estimated Glomerular Filt Rate > 60 mL/min (>60); Globulin 3.3 g/dL (1.7-4.1); Glucose 103 mg/dL (70-99); HEMOLYSIS < 15 (0-50); Potassium 4.6 mmol/L (3.4-5.1); Sodium 132 mmol/L (137-145); Total Protein 7.1 g/dL (6.3-8.2)
== END ==
PROVIDERS: PCP Registered Nurse; Referring Provider Physician Assistant; Visit Provider Physician Assistant
DX: C50.411 Malignant neoplasm of upper-outer quadrant of right female breast (principal); Z17.1 Estrogen receptor negative status [ER-]
CPT/HCPCS: 36415; 80053

== ENCOUNTER → 2025-08-02 10:51 | Outpatient (CLI) | payer BC, SELFPAY ==
[2025-08-02 12:30] LABS: Alanine Aminotransferase 17 IU/L (<35); Albumin 3.9 g/dL (3.5-5.0); Albumin Globulin Ratio 1.6 (1.0-2.8); Alkaline Phosphatase 91 U/L (38-126); Blood Urea Nitrogen 10 mg/dL (7-17); Calcium 9.3 mg/dL (8.4-10.2); Carbon Dioxide 28 mmol/L (22-32); Chloride 102 mmol/L (98-107); Estimated Glomerular Filt Rate > 60 mL/min (>60); Globulin 2.5 g/dL (1.7-4.1); Glucose 107 mg/dL (70-99); HEMOLYSIS < 15 (0-50); Potassium 3.6 mmol/L (3.4-5.1); Sodium 138 mmol/L (137-145); Total Protein 6.4 g/dL (6.3-8.2)
== END ==
PROVIDERS: PCP Registered Nurse; Referring Provider Nurse Practitioner Family; Visit Provider Nurse Practitioner Family
DX: C50.411 Malignant neoplasm of upper-outer quadrant of right female breast (principal); Z17.1 Estrogen receptor negative status [ER-]
CPT/HCPCS: 36415; 80053